=== PATIENT | female | born 1980 | race African-American/Black ===

== ENCOUNTER 2017-02-13 16:34 | Emergency (ER) | payer OTHER ==
[2017-02-13] MEDS ORDERED: predniSONE 20 MG TAB ONE (17:25)
== END 2017-02-13 17:33 | disposition home or self-care (01) ==
LOC: NAV ERS 16:34
DX: G56.21 Lesion of ulnar nerve, right upper limb (principal); F17.210 Nicotine dependence, cigarettes, uncomplicated; K21.9 Gastro-esophageal reflux disease without esophagitis; I10 Essential (primary) hypertension; J45.909 Unspecified asthma, uncomplicated; F32.9 Major depressive disorder, single episode, unspecified; Z79.899 Other long term (current) drug therapy; Z79.891 Long term (current) use of opiate analgesic
CPT/HCPCS: 99283; J7506

== ENCOUNTER 2017-02-20 23:29 | Emergency (ER) | payer OTHER ==
[2017-02-20] MEDS ORDERED: predniSONE 20 MG TAB ONE (23:50)
== END 2017-02-20 23:57 | disposition home or self-care (01) ==
LOC: NAV ERS 23:29
DX: M54.12 Radiculopathy, cervical region (principal); K21.9 Gastro-esophageal reflux disease without esophagitis; I10 Essential (primary) hypertension; G51.0 Bell's palsy; J45.909 Unspecified asthma, uncomplicated; F20.9 Schizophrenia, unspecified; F32.9 Major depressive disorder, single episode, unspecified; F17.210 Nicotine dependence, cigarettes, uncomplicated; Z79.899 Other long term (current) drug therapy
CPT/HCPCS: 93005; J7506

== ENCOUNTER 2017-02-24 10:43 | Emergency (ER) | payer OTHER ==
[2017-02-24] MEDS ORDERED: Ibuprofen 800 MG TAB ONE (11:21)
== END 2017-02-24 12:10 | disposition home or self-care (01) ==
LOC: NAV ERS 10:43
DX: T78.40XA Allergy, unspecified, initial encounter (principal); K21.9 Gastro-esophageal reflux disease without esophagitis; I10 Essential (primary) hypertension; J45.909 Unspecified asthma, uncomplicated; F32.9 Major depressive disorder, single episode, unspecified; F20.9 Schizophrenia, unspecified; F17.210 Nicotine dependence, cigarettes, uncomplicated; Z79.899 Other long term (current) drug therapy
CPT/HCPCS: 87081; 87430; 99283

== ENCOUNTER 2017-03-01 19:40 | Emergency (ER) | payer OTHER | END 2017-03-01 20:36 | disposition home or self-care (01) | LOC: NAV ERS 19:40 | DX: J06.9 Acute upper respiratory infection, unspecified (principal); R09.82 Postnasal drip; K21.9 Gastro-esophageal reflux disease without esophagitis; I10 Essential (primary) hypertension; J45.909 Unspecified asthma, uncomplicated; F32.9 Major depressive disorder, single episode, unspecified; F20.9 Schizophrenia, unspecified; F17.210 Nicotine dependence, cigarettes, uncomplicated; Z79.891 Long term (current) use of opiate analgesic; Z79.899 Other long term (current) drug therapy | CPT/HCPCS: 99282 ==

== ENCOUNTER 2017-03-06 20:40 | Emergency (ER) | payer OTHER ==
[2017-03-06] MEDS ORDERED: HYDROcodone/Acetaminophen 10/325 mg Tablet ONE (20:59)
[2017-03-06] MEDS ORDERED: Ibuprofen 800 MG TAB ONE (20:59)
== END 2017-03-06 21:05 | disposition home or self-care (01) ==
LOC: NAV ERS 20:40
DX: M79.1 Myalgia (principal); K21.9 Gastro-esophageal reflux disease without esophagitis; I10 Essential (primary) hypertension; J45.909 Unspecified asthma, uncomplicated; F32.9 Major depressive disorder, single episode, unspecified; F20.9 Schizophrenia, unspecified; F17.210 Nicotine dependence, cigarettes, uncomplicated

== ENCOUNTER 2017-03-12 17:53 | Emergency (ER) | payer OTHER ==
[2017-03-12] MEDS ORDERED: Ketorolac Tromethamine 60 MG/2 ML VIAL ONE (18:19)
== END 2017-03-12 18:27 | disposition home or self-care (01) ==
LOC: NAV ERS 17:53
DX: M79.631 Pain in right forearm (principal); I10 Essential (primary) hypertension; J45.909 Unspecified asthma, uncomplicated; F32.9 Major depressive disorder, single episode, unspecified; F20.9 Schizophrenia, unspecified; F17.210 Nicotine dependence, cigarettes, uncomplicated; M47.816 Spondylosis without myelopathy or radiculopathy, lumbar region
CPT/HCPCS: 99283; J1885

== ENCOUNTER 2017-03-15 17:02 | Emergency (ER) | payer OTHER ==
[2017-03-15] MEDS ORDERED: cefTRIAXone\\ROCEPHIN 1 GM VIAL ONE (17:23)
[2017-03-15] MEDS ORDERED: Lidocaine 1% 20 ML MDV ONE (17:23)
[2017-03-15 17:57] LABS: #Basophils 0.2 thou/uL (0.0-0.2); #Eosinphils 0.3 thou/uL (0.0-0.7); #Monocytes 0.6 thou/uL (0.11-0.59); #Neutrophils 6.9 thou/uL (1.40-6.50); %Basophils 1.6 % (0.0-1.0); %Eosinophils 2.6 % (0.0-10.0); %Lymphocytes 27.4 % (21.0-51.0); %Monocytes 5.3 % (0.0-10.0); Hemoglobin 14.1 g/dL (12.0-16.0); Mean Corpuscular HGB CONC 32.4 g/dL (32.0-36.0); Mean Corpuscular Hemoglobin 29.7 pg (27.0-31.0); Mean Corpuscular Volume 91.8 fl (81.0-99.0); Mean Platelet Volume 7.2 fL (7.4-10.4); Platelet Count 358 thou/uL (130-400); RBC Distribution Width 12.1 % (11.5-14.5); Red Blood Cell (RBC) Count 4.74 mill/uL (4.20-5.40); White Blood Cell (WBC) Count 10.9 thou/uL (4.8-10.8)
[2017-03-15 18:12] LABS: ALT (SGPT) 17 U/L (8-55); AST (SGOT) 19 U/L (5-34); Albumin 3.9 g/dL (3.5-5.0); Alkaline Phosphatase 80 U/L (40-150); Anion Gap 14 mmol/L (10-20); BUN (Urea Nitrogen) 10 mg/dL (7.0-18.7); Bilirubin, Total 0.2 mg/dL (0.2-1.2); Calc. Creatinine Clearance 0 mL/min (70-130); Calcium 9.7 mg/dL (7.8-10.44); Carbon Dioxide 22 mmol/L (22-29); Chloride 109 mmol/L (98-107); Estimated GFR-MDRD 74; Globulin 3.9 g/dL (2.4-3.5); Glucose 97 mg/dL (70-105); Potassium 3.7 mmol/L (3.5-5.1); Protein, Total 7.8 g/dL (6.0-8.3); Sodium 141 mmol/L (136-145)
--- NOTE | 2017-03-15 18:28 | RAD ---
PORTABLE FRONTAL CHEST RADIOGRAPH 03/15/17 COMPARISON: 11/01/15 HISTORY: Bodyaches and cough. FINDINGS: No pneumothorax or pleural fluid. No focal consolidation or alveolar edema. IMPRESSION: No acute findings. POS: [facility]
== END 2017-03-15 18:33 | disposition home or self-care (01) ==
LOC: NAV ERS 17:02
DX: J20.9 Acute bronchitis, unspecified (principal); I10 Essential (primary) hypertension; J45.909 Unspecified asthma, uncomplicated; M47.816 Spondylosis without myelopathy or radiculopathy, lumbar region; F32.9 Major depressive disorder, single episode, unspecified; F25.9 Schizoaffective disorder, unspecified; F17.210 Nicotine dependence, cigarettes, uncomplicated
CPT/HCPCS: 71010; 80053; 85025; 96372; J0696; J2001

== ENCOUNTER 2017-03-16 19:55 | Emergency (ER) | payer OTHER ==
[2017-03-16] MEDS ORDERED: Ondansetron ODT 4 MG TAB ONE (20:22)
== END 2017-03-16 20:28 | disposition home or self-care (01) ==
LOC: NAV ERS 19:55
DX: R11.2 Nausea with vomiting, unspecified (principal); R09.81 Nasal congestion; K21.9 Gastro-esophageal reflux disease without esophagitis; I10 Essential (primary) hypertension; J45.909 Unspecified asthma, uncomplicated; F32.9 Major depressive disorder, single episode, unspecified; F20.9 Schizophrenia, unspecified; F17.210 Nicotine dependence, cigarettes, uncomplicated; Z79.899 Other long term (current) drug therapy
CPT/HCPCS: 99283; Q0162

== ENCOUNTER 2017-05-27 17:25 | Emergency (ER) | payer OTHER | END 2017-05-27 18:10 | disposition home or self-care (01) | LOC: NAV ERS 17:25 | DX: K02.9 Dental caries, unspecified (principal); J45.909 Unspecified asthma, uncomplicated; K21.9 Gastro-esophageal reflux disease without esophagitis; I10 Essential (primary) hypertension; F17.210 Nicotine dependence, cigarettes, uncomplicated | CPT/HCPCS: 99284 ==

== ENCOUNTER 2017-06-03 10:44 | Emergency (ER) | payer OTHER | END 2017-06-03 11:19 | disposition home or self-care (01) | LOC: NAV ERS 10:44 | DX: S61.411A Laceration without foreign body of right hand, initial encounter (principal); K21.9 Gastro-esophageal reflux disease without esophagitis; I10 Essential (primary) hypertension; G51.0 Bell's palsy; J45.909 Unspecified asthma, uncomplicated; F32.9 Major depressive disorder, single episode, unspecified; F20.9 Schizophrenia, unspecified; F17.210 Nicotine dependence, cigarettes, uncomplicated; Z79.51 Long term (current) use of inhaled steroids; Z79.891 Long term (current) use of opiate analgesic; Z79.899 Other long term (current) drug therapy; W26.8XXA Contact with other sharp object(s), not elsewhere classified, initial encounter | CPT/HCPCS: 99282 ==

== ENCOUNTER 2017-06-07 08:34 | Emergency (ER) | payer OTHER | END 2017-06-07 09:26 | disposition home or self-care (01) | LOC: NAV ERS 08:34 | DX: S61.411A Laceration without foreign body of right hand, initial encounter (principal); L08.9 Local infection of the skin and subcutaneous tissue, unspecified; I10 Essential (primary) hypertension; K21.9 Gastro-esophageal reflux disease without esophagitis; J45.909 Unspecified asthma, uncomplicated; F32.9 Major depressive disorder, single episode, unspecified; F17.210 Nicotine dependence, cigarettes, uncomplicated; Z79.899 Other long term (current) drug therapy; X58.XXXA Exposure to other specified factors, initial encounter | CPT/HCPCS: 99283 ==

== ENCOUNTER 2017-07-19 00:08 | Emergency (ER) | payer OTHER | END 2017-07-19 00:34 | disposition home or self-care (01) | LOC: NAV ERS 00:08 | DX: K02.9 Dental caries, unspecified (principal); J45.909 Unspecified asthma, uncomplicated; I10 Essential (primary) hypertension; F17.210 Nicotine dependence, cigarettes, uncomplicated; M46.96 Unspecified inflammatory spondylopathy, lumbar region; K21.9 Gastro-esophageal reflux disease without esophagitis; F32.9 Major depressive disorder, single episode, unspecified; F20.9 Schizophrenia, unspecified | CPT/HCPCS: 99282 ==

== ENCOUNTER 2017-07-22 13:31 | Emergency (ER) | payer OTHER ==
[2017-07-22] MEDS ORDERED: Ciprofloxacin 500 MG TAB ONE (13:50)
[2017-07-22] MEDS ORDERED: Ketorolac Tromethamine 60 MG/2 ML VIAL ONE (13:50)
== END 2017-07-22 14:11 | disposition home or self-care (01) ==
LOC: NAV ERS 13:31
DX: K02.9 Dental caries, unspecified (principal); F20.9 Schizophrenia, unspecified; F17.210 Nicotine dependence, cigarettes, uncomplicated; I10 Essential (primary) hypertension; G51.0 Bell's palsy; J45.909 Unspecified asthma, uncomplicated; K21.9 Gastro-esophageal reflux disease without esophagitis; Z79.52 Long term (current) use of systemic steroids; Z79.899 Other long term (current) drug therapy
CPT/HCPCS: 96372; J1885

== ENCOUNTER 2017-07-28 09:35 | Emergency (ER) | payer OTHER ==
[2017-07-28] MEDS ORDERED: Ketorolac Tromethamine 60 MG/2 ML VIAL ONE (10:03)
== END 2017-07-28 10:16 | disposition home or self-care (01) ==
LOC: NAV ERS 09:35
DX: M54.5 Low back pain (principal); K21.9 Gastro-esophageal reflux disease without esophagitis; I10 Essential (primary) hypertension; J45.909 Unspecified asthma, uncomplicated; F32.9 Major depressive disorder, single episode, unspecified; F20.9 Schizophrenia, unspecified; F17.210 Nicotine dependence, cigarettes, uncomplicated; G51.0 Bell's palsy; Z79.899 Other long term (current) drug therapy
CPT/HCPCS: 96372; J1885

== ENCOUNTER 2017-09-08 16:00 | Emergency (ER) | payer OTHER | END 2017-09-08 16:32 | disposition home or self-care (01) | LOC: NAV ERS 16:00 | DX: K08.89 Other specified disorders of teeth and supporting structures (principal); K21.9 Gastro-esophageal reflux disease without esophagitis; I10 Essential (primary) hypertension; G51.0 Bell's palsy; J45.909 Unspecified asthma, uncomplicated; M19.90 Unspecified osteoarthritis, unspecified site; F32.9 Major depressive disorder, single episode, unspecified; F20.9 Schizophrenia, unspecified; F17.210 Nicotine dependence, cigarettes, uncomplicated; Z79.899 Other long term (current) drug therapy | CPT/HCPCS: 99282 ==

== ENCOUNTER 2018-10-24 10:29 | Emergency (ER) | payer OTHER ==
[2018-10-24] MEDS ORDERED: Ondansetron ODT 4 MG TAB ONE (10:55)
== END 2018-10-24 11:29 | disposition home or self-care (01) ==
LOC: NAV ERS 10:29
DX: J06.9 Acute upper respiratory infection, unspecified (principal); E03.9 Hypothyroidism, unspecified; E66.9 Obesity, unspecified; K21.9 Gastro-esophageal reflux disease without esophagitis; I10 Essential (primary) hypertension; J45.909 Unspecified asthma, uncomplicated; F32.9 Major depressive disorder, single episode, unspecified; F20.9 Schizophrenia, unspecified; F17.210 Nicotine dependence, cigarettes, uncomplicated
CPT/HCPCS: 87081; 87430; 87804; 99283; Q0162

== ENCOUNTER 2019-04-16 15:36 | Emergency (ER) | payer OTHER | END 2019-04-16 16:10 | disposition home or self-care (01) | LOC: NAV ERS 15:36 | DX: M54.5 Low back pain (principal); E03.9 Hypothyroidism, unspecified; I10 Essential (primary) hypertension; J45.909 Unspecified asthma, uncomplicated; K21.9 Gastro-esophageal reflux disease without esophagitis; M19.90 Unspecified osteoarthritis, unspecified site; F20.9 Schizophrenia, unspecified; F32.9 Major depressive disorder, single episode, unspecified; F17.210 Nicotine dependence, cigarettes, uncomplicated; Z79.899 Other long term (current) drug therapy; Z79.891 Long term (current) use of opiate analgesic ==

== ENCOUNTER 2019-04-17 20:48 | Emergency (ER) | payer OTHER ==
[2019-04-17] MEDS ORDERED: Ketorolac Tromethamine 60 MG/2 ML VIAL ONE (21:16)
== END 2019-04-17 21:35 | disposition home or self-care (01) ==
LOC: NAV ERS 20:48
DX: M54.5 Low back pain (principal); M54.6 Pain in thoracic spine; E03.9 Hypothyroidism, unspecified; K21.9 Gastro-esophageal reflux disease without esophagitis; J45.909 Unspecified asthma, uncomplicated; I10 Essential (primary) hypertension; F17.210 Nicotine dependence, cigarettes, uncomplicated; F32.9 Major depressive disorder, single episode, unspecified; F20.9 Schizophrenia, unspecified; Z79.899 Other long term (current) drug therapy
CPT/HCPCS: 96372; J1885

== ENCOUNTER 2019-05-18 07:24 | Emergency (ER) | payer OTHER | END 2019-05-18 08:05 | disposition home or self-care (01) | LOC: NAV ERS 07:24 | DX: L25.3 Unspecified contact dermatitis due to other chemical products (principal); E03.9 Hypothyroidism, unspecified; I10 Essential (primary) hypertension; J45.909 Unspecified asthma, uncomplicated; M19.90 Unspecified osteoarthritis, unspecified site; K21.9 Gastro-esophageal reflux disease without esophagitis; F32.9 Major depressive disorder, single episode, unspecified; F20.9 Schizophrenia, unspecified; F17.210 Nicotine dependence, cigarettes, uncomplicated; Z79.899 Other long term (current) drug therapy | CPT/HCPCS: 99281 ==

== ENCOUNTER 2019-05-26 08:25 | Emergency (ER) | payer OTHER | END 2019-05-26 08:52 | disposition home or self-care (01) | LOC: NAV ERS 08:25 | DX: G89.29 Other chronic pain (principal); K08.89 Other specified disorders of teeth and supporting structures; E03.9 Hypothyroidism, unspecified; K21.9 Gastro-esophageal reflux disease without esophagitis; I10 Essential (primary) hypertension; J45.909 Unspecified asthma, uncomplicated; F32.9 Major depressive disorder, single episode, unspecified; F20.9 Schizophrenia, unspecified; F17.210 Nicotine dependence, cigarettes, uncomplicated; Z79.899 Other long term (current) drug therapy | CPT/HCPCS: 99283 ==

== ENCOUNTER 2019-06-16 23:18 | Emergency (ER) | payer OTHER | END 2019-06-16 23:41 | disposition home or self-care (01) | LOC: NAV ERS 23:18 | DX: M54.5 Low back pain (principal); E03.9 Hypothyroidism, unspecified; I10 Essential (primary) hypertension; J45.909 Unspecified asthma, uncomplicated; K21.9 Gastro-esophageal reflux disease without esophagitis; M19.90 Unspecified osteoarthritis, unspecified site; F32.9 Major depressive disorder, single episode, unspecified; F20.9 Schizophrenia, unspecified; F17.210 Nicotine dependence, cigarettes, uncomplicated; Z79.899 Other long term (current) drug therapy | CPT/HCPCS: 99281 ==

== ENCOUNTER 2021-03-21 11:03 | Emergency (ER) | payer OTHER ==
[2021-03-21] MEDS ORDERED: Lidocaine 1% w/Epinephrine 1:100K 20 ML VIAL ONE (12:09)
[2021-03-21] MEDS ORDERED: Bacitracin 1 PK ONE (13:11)
== END 2021-03-21 13:12 | disposition home or self-care (01) ==
LOC: NAV ERS 11:03
DX: S90.852A Superficial foreign body, left foot, initial encounter (principal); J45.909 Unspecified asthma, uncomplicated; K21.9 Gastro-esophageal reflux disease without esophagitis; E03.9 Hypothyroidism, unspecified; I10 Essential (primary) hypertension; F17.210 Nicotine dependence, cigarettes, uncomplicated; Z79.899 Other long term (current) drug therapy; W25.XXXA Contact with sharp glass, initial encounter
CPT/HCPCS: 28190

== ENCOUNTER 2021-03-27 11:11 | Emergency (ER) | payer OTHER | END 2021-03-27 11:55 | disposition home or self-care (01) | LOC: NAV ERS 11:11 | DX: M54.5 Low back pain (principal); K21.9 Gastro-esophageal reflux disease without esophagitis; E03.9 Hypothyroidism, unspecified; I10 Essential (primary) hypertension; F17.210 Nicotine dependence, cigarettes, uncomplicated; Z79.899 Other long term (current) drug therapy | CPT/HCPCS: 99281 ==

== ENCOUNTER 2021-11-21 17:13 | Emergency (ER) | payer OTHER | END 2021-11-21 18:20 | disposition home or self-care (01) | LOC: NAV ERS 17:13 | DX: M25.562 Pain in left knee (principal); I10 Essential (primary) hypertension; M19.90 Unspecified osteoarthritis, unspecified site; K21.9 Gastro-esophageal reflux disease without esophagitis; E03.9 Hypothyroidism, unspecified; F17.210 Nicotine dependence, cigarettes, uncomplicated; Z79.899 Other long term (current) drug therapy | CPT/HCPCS: 99283 ==